=== PATIENT | female | born 1985 | race African-American/Black ===

== ENCOUNTER 2018-02-20 09:06 | Day surgery (SDC) | payer OTHER ==
[2018-02-20 10:35] LABS: ADD MAN DIFF? NO
[2018-02-20 10:43] LABS: BASOPHIL # 0.1 10^3/ul (0.0-0.1); BASOPHILS % 1.1 % (0.0-2.0); EOSINOPHILS # 0.1 10^3/ul (0.0-0.5); EOSINOPHILS % 1.4 % (0.0-7.0); HEMATOCRIT 34.3 % (37.0-47.0); LYMPHOCYTES # 1.6 10^3/ul (0.8-2.9); LYMPHOCYTES % 27.6 % (15.0-51.0); MEAN CORPUSCULAR HEMOGLOBIN 23.5 pg (29.0-33.0); MEAN CORPUSCULAR HGB CONC 32.1 g/dl (32.0-37.0); MEAN CORPUSCULAR VOLUME 73.1 fl (82.0-101.0); MEAN PLATELET VOLUME 11.1 fl (7.4-10.4); MONOCYTE # 0.4 10^3/ul (0.3-0.9); MONOCYTES % 7.4 % (0.0-11.0); NEUTROPHIL # 3.5 10^3/ul (1.6-7.5); NEUTROPHILS % 62.3 % (39.0-77.0); PLATELET COUNT 314 10^3/UL (140-415); RED BLOOD COUNT 4.69 10^6/ul (4.20-5.40); RED CELL DISTRIBUTION WIDTH 18.2 % (11.5-14.5)
[2018-02-20 10:43] LABS: WHITE BLOOD COUNT 5.7 10^3/ul (4.8-10.8)
[2018-02-20] MEDS ORDERED: FENTAnyl 50 MCG/ML VIAL (11:56)
[2018-02-20] MEDS ORDERED: OXYCODONE/ACETAMINOPHEN (5/325) TAB PO (12:00)
[2018-02-20] MEDS ORDERED: DIPHENHYDRAMINE 50 MG INJ IV (12:00)
[2018-02-20] MEDS ORDERED: ONDANSETRON 4 MG INJ IV (12:00)
[2018-02-20] MEDS ORDERED: MEPERIDINE 25 MG INJ IV (12:00)
[2018-02-20] MEDS ORDERED: ALBUTEROL 0.083% (NEB) 2.5 MG/3 ML AMP HHN (12:00)
[2018-02-20] MEDS ORDERED: FENTAnyl 50 MCG/ML VIAL IV (12:00)
[2018-02-20] MEDS ORDERED: METOCLOPRAMIDE 10 MG INJ IV (12:00)
[2018-02-20] MEDS ORDERED: HYDROmorphONE 1 MG/5 ML IV SYRINGE IV ×3 (12:00)
[2018-02-20] MEDS ORDERED: ROCURONIUM 50 MG INJ (12:16)
[2018-02-20] MEDS ORDERED: LIDOCAINE 1% (MDV) 20 ML INJ (12:16)
[2018-02-20] MEDS ORDERED: PROPOFOL 20 ML (12:16)
[2018-02-20] MEDS ORDERED: SUCCINYLCHOLINE CHLORIDE 100 MG/5 ML SYG IV (12:16)
[2018-02-20] MEDS ORDERED: SUGAMMADEX SODIUM 200 MG/2 ML VIAL IV (12:17)
[2018-02-20] MEDS ORDERED: CEFAZOLIN 1 GM INJ (12:17)
[2018-02-20] MEDS: FENTAnyl 50 MCG/ML VIAL IV ×2 (12:58→13:03)
== END 2018-02-20 14:40 | disposition home or self-care (01) ==
LOC: SDS 09:06
DX: N93.9 Abnormal uterine and vaginal bleeding, unspecified (principal); I10 Essential (primary) hypertension; E11.9 Type 2 diabetes mellitus without complications
CPT/HCPCS: 58120; 82962; 85025; 86850; 86900; 86901; 88305

== ENCOUNTER 2018-06-27 09:05 | Inpatient (IN) | payer OTHER ==
[2018-06-27] MEDS ORDERED: MIDAZOLAM 1 MG/ML 2 ML INJ (12:04)
[2018-06-27] MEDS ORDERED: CEFAZOLIN 1 GM INJ (12:04)
[2018-06-27] MEDS ORDERED: PROPOFOL 20 ML (12:04)
[2018-06-27] MEDS ORDERED: ROCURONIUM 50 MG INJ ×2 (12:04→12:44)
[2018-06-27] MEDS ORDERED: LIDOCAINE 2% (SDV) 5 ML INJ (12:04)
[2018-06-27] MEDS ORDERED: VASOPRESSIN 20 UNITS INJ ×3 (12:10→13:20)
[2018-06-27] MEDS ORDERED: HYDROmorphONE 2 MG/ML SYG (12:10)
[2018-06-27] MEDS ORDERED: METOCLOPRAMIDE 10 MG INJ (12:21)
[2018-06-27] MEDS ORDERED: FAMOTIDINE 20 MG INJ (12:21)
[2018-06-27] MEDS ORDERED: DEXAMETHASONE 4 MG/ML 5 ML INJ (12:21)
[2018-06-27] MEDS ORDERED: ONDANSETRON 4 MG INJ (12:21)
[2018-06-27] MEDS ORDERED: PHENYLephrine 10 MG INJ (12:24)
[2018-06-27] MEDS ORDERED: KETAMINE (100 MG/ML) 5 ML VIAL (12:33)
[2018-06-27] MEDS: VASOPRESSIN 20 UNITS INJ SC ×2 (12:35→13:20)
[2018-06-27] MEDS: CEFAZOLIN 2 GM/50 ML (PMX) 50 ML IVPB (12:40)
[2018-06-27] MEDS ORDERED: MEPERIDINE 25 MG INJ IV (13:30)
[2018-06-27] MEDS ORDERED: HYDROmorphONE 1 MG/5 ML IV SYRINGE IV ×3 (13:30→15:15)
[2018-06-27] MEDS ORDERED: ONDANSETRON 4 MG INJ IV (13:30)
[2018-06-27] MEDS ORDERED: ALBUTEROL 0.083% (NEB) 2.5 MG/3 ML AMP HHN (13:30)
[2018-06-27] MEDS ORDERED: MIDAZOLAM 1 MG/ML 2 ML INJ IV (13:30)
[2018-06-27] MEDS ORDERED: ACETAMINOPHEN 1000MG/100ML IV 100 ML IVPB (13:30)
[2018-06-27] MEDS ORDERED: PROCHLORPERAZINE 10 MG INJ IV (13:30)
[2018-06-27] MEDS ORDERED: NEOSTIGMINE 3 MG/3 ML SYRINGE (13:52)
[2018-06-27] MEDS ORDERED: GLYCOPYRROLATE 0.4 MG INJ (13:52)
[2018-06-27] MEDS ORDERED: DIPHENHYDRAMINE 50 MG CAP PO (15:00)
[2018-06-27] MEDS ORDERED: ONDANSETRON INJ 6 MG in DEXTROSE 5% 50 ML IVPB (15:00)
[2018-06-27] MEDS ORDERED: HYDROCODONE/APAP (5/325) TAB PO (15:00)
[2018-06-27] MEDS ORDERED: ZOLPIDEM 5 MG TAB PO (15:00)
[2018-06-27] MEDS: KETOROLAC 30 MG INJ IV ×2 (15:18→21:45)
[2018-06-27] MEDS: HYDROmorphONE 1 MG/5 ML IV SYRINGE IV ×6 (15:50→16:20)
[2018-06-27] MEDS: LACTATED RINGER'S 1,000 ML IV ×2 (18:09→22:40)
[2018-06-27] MEDS: METOCLOPRAMIDE 10 MG TAB PO (18:10)
[2018-06-27] MEDS: CEFAZOLIN 1 GM/50 ML (PMX) 50 ML IVPB (21:46)
[2018-06-28] MEDS: METOCLOPRAMIDE 10 MG TAB PO ×5 (00:11→23:43)
[2018-06-28] MEDS: HYDROCODONE/APAP (5/325) TAB PO ×3 (02:11→15:04)
[2018-06-28] MEDS: KETOROLAC 30 MG INJ IV ×4 (03:05→21:02)
[2018-06-28] MEDS: LACTATED RINGER'S 1,000 ML IV ×2 (03:07→11:23)
[2018-06-28 05:11] LABS: ADD MAN DIFF? NO
[2018-06-28 05:14] LABS: WHITE BLOOD COUNT 12.6 10^3/ul (4.8-10.8)
[2018-06-28 05:14] LABS: BASOPHILS % 0.2 % (0.0-2.0); HEMATOCRIT 26.6 % (37.0-47.0); HEMOGLOBIN 8.6 g/dl (12.0-16.0); LYMPHOCYTES % 7.6 % (15.0-51.0); MEAN CORPUSCULAR HEMOGLOBIN 23.4 pg (29.0-33.0); MEAN CORPUSCULAR HGB CONC 32.3 g/dl (32.0-37.0); MEAN CORPUSCULAR VOLUME 72.5 fl (82.0-101.0); MEAN PLATELET VOLUME 10.8 fl (7.4-10.4); MONOCYTE # 0.9 10^3/ul (0.3-0.9); MONOCYTES % 7.4 % (0.0-11.0); NEUTROPHIL # 10.6 10^3/ul (1.6-7.5); NEUTROPHILS % 84.2 % (39.0-77.0); PLATELET COUNT 262 10^3/UL (140-415); RED BLOOD COUNT 3.67 10^6/ul (4.20-5.40); RED CELL DISTRIBUTION WIDTH 17.6 % (11.5-14.5)
[2018-06-28 05:34] LABS: ANION GAP 6 (5-13); BLOOD UREA NITROGEN 7 mg/dl (7-20); CARBON DIOXIDE 25 mmol/L (21-31); CHLORIDE 109 mmol/L (97-110); CREATININE 0.84 mg/dl (0.44-1.00); POTASSIUM 3.8 mmol/L (3.5-5.1); SODIUM 140 mmol/L (135-144)
[2018-06-28] MEDS: CEFAZOLIN 1 GM/50 ML (PMX) 50 ML IVPB ×3 (05:50→22:13)
[2018-06-28] MEDS: BISACODYL (EC) 5 MG TAB PO (13:31)
[2018-06-28] MEDS: SOD FERRIC GLUC COMPLX 125 MG in SOD CHLORIDE 0.9% 100 ML IVPB (13:31)
[2018-06-29] MEDS: CEFAZOLIN 1 GM/50 ML (PMX) 50 ML IVPB (06:00)
[2018-06-29 06:12] LABS: ADD MAN DIFF? NO
[2018-06-29] MEDS: METOCLOPRAMIDE 10 MG TAB PO ×4 (06:23→23:18)
[2018-06-29 06:26] LABS: BASOPHIL # 0.1 10^3/ul (0.0-0.1); BASOPHILS % 0.7 % (0.0-2.0); EOSINOPHILS # 0.1 10^3/ul (0.0-0.5); EOSINOPHILS % 0.7 % (0.0-7.0); HEMATOCRIT 24.9 % (37.0-47.0); HEMOGLOBIN 7.9 g/dl (12.0-16.0); LYMPHOCYTES # 1.7 10^3/ul (0.8-2.9); LYMPHOCYTES % 18.4 % (15.0-51.0); MEAN CORPUSCULAR HEMOGLOBIN 23.3 pg (29.0-33.0); MEAN CORPUSCULAR HGB CONC 31.7 g/dl (32.0-37.0); MEAN CORPUSCULAR VOLUME 73.5 fl (82.0-101.0); MEAN PLATELET VOLUME 11.4 fl (7.4-10.4); MONOCYTE # 0.5 10^3/ul (0.3-0.9); MONOCYTES % 5.8 % (0.0-11.0); NEUTROPHIL # 6.7 10^3/ul (1.6-7.5); PLATELET COUNT 249 10^3/UL (140-415); RED BLOOD COUNT 3.39 10^6/ul (4.20-5.40); RED CELL DISTRIBUTION WIDTH 17.9 % (11.5-14.5)
[2018-06-29 06:26] LABS: WHITE BLOOD COUNT 9.1 10^3/ul (4.8-10.8)
[2018-06-29] MEDS: IBUPROFEN 800 MG TAB PO ×3 (09:10→20:54)
[2018-06-29] MEDS: BISACODYL (EC) 5 MG TAB PO (09:10)
[2018-06-29] MEDS ORDERED: INFLUENZA VIRUS VACCINE 0.5 ML (DISPENSING) IM* (10:00)
[2018-06-30] MEDS: METOCLOPRAMIDE 10 MG TAB PO ×2 (06:43→12:16)
[2018-06-30] MEDS: IBUPROFEN 800 MG TAB PO ×2 (09:18→12:16)
[2018-06-30] MEDS: BISACODYL 10 MG SUPP PR (12:19)
== END 2018-06-30 16:40 | disposition home or self-care (01) | DRG 743 ==
LOC: REC 09:05 → MS1 17:49
PROC: 0UB90ZZ Excision of Uterus, Open Approach (ICD-10-PCS; principal; 2018-06-27 11:00)
DX: D25.9 Leiomyoma of uterus, unspecified (principal); N92.1 Excessive and frequent menstruation with irregular cycle; N39.3 Stress incontinence (female) (male); D50.0 Iron deficiency anemia secondary to blood loss (chronic)
CPT/HCPCS: 80051; 82565; 84520; 85025; 86850; 86900; 86901; 87086; 88305; 93005